=== PATIENT | male | born 1955 | race Caucasian/White ===

== ENCOUNTER 2017-11-05 16:53 | Emergency (ER) | END 2017-11-05 19:06 | disposition home or self-care (01) ==

== ENCOUNTER 2018-11-07 06:03 | Day surgery (SDC) | payer OTHER ==
[~2018-11-07] VITALS: Ht 182.9 cm; Wt 91.6 kg
[~2018-11-07 06:03] MED LIST: ATORVASTIN PO; GABAPENTIN; GLIMEPIRIDE PO; JANUVIA PO; LISINOPRIL PO; METFORMIN PO; TRAM50TA2 PO
[2018-11-07 07:10] VITALS: BP 118/77; PULSE 63; RESP 16
[2018-11-07] MEDS ORDERED: LIDOCAINE 2% (SDV) 5 ML INJ ONE (07:58)
[2018-11-07] MEDS ORDERED: PROPOFOL 40 ML ONE (07:58)
[2018-11-07 08:57] VITALS: BP 112/65; PULSE 65; RESP 12
[2018-11-07] MEDS ORDERED: ALBUTEROL 0.083% (NEB) 2.5 MG/3 ML AMP HHN PRN (09:00)
[2018-11-07] MEDS ORDERED: ONDANSETRON 4 MG INJ IV PRN (09:00)
[2018-11-07] MEDS ORDERED: FENTAnyl 50 MCG/ML VIAL IV PRN (09:00)
== END 2018-11-07 10:31 | disposition home or self-care (01) ==
LOC: GIL 06:03
PROVIDERS: ATTEND Internal Medicine Gastroenterology
DX: Z12.11 Encounter for screening for malignant neoplasm of colon (principal); K64.8 Other hemorrhoids; K57.30 Diverticulosis of large intestine without perforation or abscess without bleeding; E11.9 Type 2 diabetes mellitus without complications; I10 Essential (primary) hypertension; Z79.84 Long term (current) use of oral hypoglycemic drugs; D12.0 Benign neoplasm of cecum; D12.5 Benign neoplasm of sigmoid colon
CPT/HCPCS: 82962; 88305